=== PATIENT | male | born 1990 | race Caucasian/White ===

== ENCOUNTER 2019-02-28 21:02 | Observation (INO) ==
[2019-02-28] MEDS ORDERED: NS 1,000 ML IV ONE ×2 (21:15→23:20)
[2019-02-28] MEDS ORDERED: SODIUM CHLORIDE 0.9% INJ ONE (21:15)
[2019-02-28] MEDS ORDERED: PHENERGAN IV ONE (21:15)
[2019-02-28 21:36] LABS: BASO# 0.03 X1000 (0.0-0.2); BASO% 0.2 % (0.0-0.8); EOS# 0.07 X1000 (0.0-0.7); EOS% 0.5 % (0.0-10.0); HEMATOCRIT 46.2 % (42.0-52.0); HEMOGLOBIN 16.1 g/dL (14.0-18.0); IMM GRAN# 0.04 X1000 (0.0-0.04); IMM GRAN% 0.3 % (0.0-0.5); LYMPH# 1.67 X1000 (1.2-3.4); LYMPH% 11.3 % (20.5-51.1); MCH 29.5 PG (27-31); MCHC 34.8 g/dL (33-37); MCV 84.8 FL (81-99); MONO# 0.77 X1000 (0.11-0.59); MONO% 5.2 % (1.7-9.3); MPV 10.6 FL (7.4-10.4); NEUT# 12.23 X1000 (1.4-6.5); NEUT% 82.5 % (42.2-75.2); PLT 306 X1000 (130-400); RBC 5.45 XMIL (4.7-6.1); RDW 12.9 % (11.5-14.5); WBC 14.81 X1000 (4.8-10.8)
[2019-02-28 21:49] LABS: AGAP 17; ALBUMIN 4.3 g/dL (3.5-5.0); ALKALINE PHOSPHATASE 79 U/L (32-122); BUN 10 mg/dL (8-22); CALCIUM 8.9 mg/dL (8.8-10.2); CHLORIDE 102 mmol/L (98-107); COSMO 280; CREATININE 0.8 mg/dL (0.7-1.2); ESTIMATED GFR > 60; GLUCOSE 126 mg/dL (70-104); GOT 24 U/L (10-34); GPT 30 U/L (10-44); POTASSIUM 3.6 mmol/L (3.5-5.1); SODIUM 140 mmol/L (136-145); TCO2 21 mmol/L (25-35); TOTAL PROTEIN 8.1 g/dL (6.3-8.3)
[2019-02-28 22:03] LABS: I-STAT CREATININE 0.9 mg/dL (0.6-1.3)
--- NOTE | 2019-02-28 22:31 | Diag Imaging Result Doc PS360 ---
EXAM: CHEST-PORTABLE HISTORY: uri TECHNIQUE: Portable chest single view COMPARISON: None. FINDINGS: The lungs are well expanded. The heart is not enlarged. The vessels are not distended. There are no infiltrates. No effusion identified. IMPRESSION: No pneumonia. Electronically signed by Navid Mascorro 02/28/2019 10:28 PM
[2019-03-01] MEDS ORDERED: NS 1,000 ML IV ONE ×2 (01:49→06:25)
--- NOTE | 2019-03-01 02:09 | PROVIDER DOCUMENTATION ---
This chart was entered by Sarah Robb Scribe, acting as scribe for Dk Winters MD. HPI-General Adult - General Chief Complaint: Nausea/Vomiting Stated Complaint: difficulty breathing Time Seen by Provider: 02/28/19 21:08 Source: patient, EMS Allergies/Adverse Reactions: Patient Allergies Allergy/AdvReac Type Severity Reaction Status Date / Time No Known Allergies Allergy Verified 02/28/19 21:16 Home Medications: Home Medication List Medication Instructions Recorded Confirmed Last Taken Type Azithromycin [Zithromax Z-Teofilo] 1 tab PO DIRECTED 02/28/19 02/28/19 Unknown History - History of Present Illness -Gen Adult Nature of Presenting Problems: 28 y/o male presents to ED with N/V/D onset 2 hours prior to arrival. Pt reports he started taking azithromyocin yesterday for URI. EMS states he was diaphoretic en route to ED and they gave 4 of zofran. Pt is alert and oriented. Location of Pain/Injury: reports: none Pain Radiation: reports: no radiation Quality of Pain: reports: none Severity: reports: moderate Onset/Duration: reports: 1-3 hours ago Timing: reports: still present Context/Activities at Onset: reports: none Modifying Factors: improves with: nothing Associated Symptoms: reports: diarrhea, nausea, vomiting Similar Symptoms Previously?: No Recently seen or treated by another doctor?: Yes (urgent care yesterday) Review of Systems - Adult - REVIEW OF SYSTEMS - ADULT Constitutional: denies: chills, fever Eyes: reports: no symptoms reported Ears, Nose, Mouth & Throat: reports: no symptoms reported Cardiovascular: denies: chest pain, palpitations Respiratory: denies: cough, shortness of breath Gastrointestinal: reports: diarrhea, nausea, vomiting. denies: abdominal pain Genitourinary: reports: no symptoms reported Musculoskeletal: denies: back pain, joint pain Integumentary: reports: no symptoms reported Neurological: denies: dizziness/vertigo, seizure Psychiatric: reports: no symptoms reported Endocrine: reports: no symptoms reported Hematologic/Lymphatic: reports: no symptoms reported Allergic/Immunologic: reports: no symptoms reported All Other Systems: Reviewed and Negative Past History - Adult - PAST MEDICAL HISTORY-ADULT Review of Records: reports: Old Records Reviewed, Nursing Assessment Review, Medications Reviewed Major Childhood Illnesses: reports: denies history Cardiovascular: reports: denies history Respiratory: reports: denies history Gastrointestinal: reports: denies history Obstetrical/Gynecological: reports: denies history Genitourinary: reports: denies history Musculoskeletal: reports: denies history Neurological: reports: denies history Endocrine/Immune: reports: denies history Other Conditions: reports: denies history - PRIOR SURGERIES/PROCEDURES Surgical/Procedure History: reports: orthopedic (extremity) (R ankle; R arm) - IMMUNIZATION STATUS Childhood Immunizations: See Nurse Assessment Flu Vaccine: See Nurse Assessment - FAMILY HISTORY Family History: reviewed, not pertinent - SOCIAL HISTORY Smoking: non-smoker Substance Use: none/never Alcohol Use Frequency: never Living Situation: family Physical Exam-General - PHYSICAL EXAM-ADULT Initial Vital Signs Reviewed: Yes - CONSTITUTIONAL General Appearance: appears well, alert, no apparent distress - EYES Eyes: PERRL/EOMI, pink conjunctivae - HEAD, EARS, NOSE, MOUTH & THROAT HENMT: normocephalic/atraumatic, moist mucous membranes, normal ENT inspection - NECK Neck: non-tender, full range of motion - RESPIRATORY Respiratory: chest non-tender, lungs clear, normal breath sounds - CARDIOVASCULAR Cardiovascular: normal peripheral pulses, regular rate, rhythm - GASTROINTESTINAL (ABDOMEN) Abdominal Exam: normal bowel sounds, non tender, soft - MUSCULOSKELETAL Back Exam: normal inspection, no CVA tenderness Extremity: normal range of motion, non-tender, normal gait - SKIN Integumentary: warm/dry, pallor - NEUROLOGIC Neurologic: grossly normal - PSYCHIATRIC Psych/Mental Status: normal mood/affect, normal thought content, normal thought process Progress - PLAN OF CARE/RESULTS Progress/Plan/Lab Results: Vital Signs - 8 hr 02/28/19 21:04 Temperature 98.3 F Pulse Rate 107 H Respiratory Rate 22 Blood Pressure 120/75 O2 Sat by Pulse Oximetry 100 Orders Category Date Time Status CHEST-2 VIEWS [RAD] Stat Exams 02/28/19 21:10 Ordered CBC WITH DIFF [HEME] Stat Lab 02/28/19 21:08 Ordered COMPREHENSIVE METABOLIC PANEL [CHEM] Stat Lab 02/28/19 21:08 Uncollected Laboratory Tests 02/28/19 02/28/19 20:58 20:58 WBC 14.81 H RBC 5.45 Hgb 16.1 Hct 46.2 MCV 84.8 MCH 29.5 MCHC 34.8 RDW Std Deviation 12.9 Plt Count 306 MPV 10.6 H Immature Gran % (Auto) 0.3 Neut % (Auto) 82.5 H Lymph % (Auto) 11.3 L [place] % (Auto) 5.2 Eos % (Auto) 0.5 Baso % (Auto) 0.2 Immature Gran # (Auto) 0.04 Neut # (Auto) 12.23 H Lymph # (Auto) 1.67 [place] # (Auto) 0.77 H Eos # (Auto) 0.07 Baso # (Auto) 0.03 Sodium 140 Potassium 3.6 Chloride 102 Carbon Dioxide 21 L Anion Gap 17 BUN 10 Creatinine 0.8 Estimated GFR/1.73 m2 > 60 BUN/Creatinine Ratio 13 Glucose 126 H Calculated Osmolality 280 Calcium 8.9 Total Bilirubin 0.50 AST 24 ALT 30 Alkaline Phosphatase 79 Total Protein 8.1 Albumin 4.3 Globulin 4.0 Albumin/Globulin Ratio 1.0 Result Diagrams: 02/28/19 20:58 02/28/19 20:58 - XRAY 1 XRAY Study: Chest Impression: Normal (FINDINGS: The lungs are well expanded. The heart is not enlarged. The vessels are not distended. There are no infiltrates. No effusion identified. IMPRESSION: No pneumonia. Electronically signed by Navid Mascorro 02/28/2019 10:28 PM) 2 XRAY Study: Abdomen (Nonspecific bowel gas pattern. -Dr. Winters) Departure - Departure Date of Disposition Decision: 03/01/19 Time of Disposition Decision: 04:14 DIAGNOSIS: Acute dehydration, Gastroenteritis Disposition: ADMITTED INPATIENT 09 Certified Medical Emergency: Emergent Condition: Stable Referrals and Follow-Ups: None,PCP [Primary Care Provider] - - Critical Care Note This patient required my direct & personal management of CC.: No Attestation - Physician/ ANNIE Attestation Patient care was provided by Advanced Practice Provider:: No The physician spent face to face time with patient:: Yes Advanced Practice Provider documentation review:: Supervising physician onsite and consulted in the evaluation and care of this patient. The physician did have a face to face encounter with the patient. This chart was documented by the indicated scribe, (Sarah Robb Scribe) and accurately reflects the services I performed and decisions made by me, Dk Winters MD, as attested by the provider's signature.
[2019-03-01] MEDS ORDERED: PHENERGAN IV PRN (04:20)
[2019-03-01] MEDS ORDERED: SODIUM CHLORIDE 0.9% INJ ONE (04:20)
--- NOTE | 2019-03-01 05:26 | Diag Imaging Result Doc PS360 ---
EXAM: ABDOMEN FLAT/UPRIGHT HISTORY: vomiting TECHNIQUE: Flat and upright, two views COMPARISON: None. FINDINGS: No free air beneath the diaphragm. No organomegaly. No foreign body. No abnormal abdominal calcifications. The bowel loops are not dilated. Tiny air-fluid levels. IMPRESSION: Possible ileus. Electronically signed by Navid Mascorro 03/01/2019 5:23 AM
[2019-03-01 08:52] LABS: BASO# 0.04 X1000 (0.0-0.2); BASO% 0.4 % (0.0-0.8); EOS# 0.03 X1000 (0.0-0.7); EOS% 0.3 % (0.0-10.0); HEMATOCRIT 42.1 % (42.0-52.0); HEMOGLOBIN 14.1 g/dL (14.0-18.0); IMM GRAN# 0.03 X1000 (0.0-0.04); IMM GRAN% 0.3 % (0.0-0.5); LYMPH# 0.72 X1000 (1.2-3.4); LYMPH% 7.2 % (20.5-51.1); MCH 29.4 PG (27-31); MCHC 33.5 g/dL (33-37); MCV 87.7 FL (81-99); MONO# 0.68 X1000 (0.11-0.59); MONO% 6.8 % (1.7-9.3); MPV 9.8 FL (7.4-10.4); NEUT# 8.45 X1000 (1.4-6.5); PLT 230 X1000 (130-400); RDW 13.2 % (11.5-14.5); WBC 9.95 X1000 (4.8-10.8)
[2019-03-01 09:12] LABS: AGAP 10; BUN 9 mg/dL (8-22); CALCIUM 7.9 mg/dL (8.8-10.2); CHLORIDE 106 mmol/L (98-107); COSMO 280; CREATININE 0.7 mg/dL (0.7-1.2); ESTIMATED GFR > 60; GLUCOSE 99 mg/dL (70-104); POTASSIUM 4.2 mmol/L (3.5-5.1); SODIUM 141 mmol/L (136-145); TCO2 25 mmol/L (25-35)
[2019-03-01] MEDS: TYLENOL PO PRN ×2 (09:26→18:15)
[2019-03-01 11:58] LABS: URINE SOURCE CLEAN CATCH
[2019-03-01 12:00] LABS: BILIRUBIN URINE NEGATIVE (NEGATIVE); CLARITY CLEAR (CLEAR); COLOR YELLOW; GLUCOSE URINE NEGATIVE (NEGATIVE); KETONE URINE NEGATIVE (NEGATIVE); URINE BACTERIA NEGATIVE /HFP; URINE CAST NONE SEEN /LPF; URINE CRYSTAL NONE SEEN /HPF; URINE EPITHELIAL CELLS <10 /HPF (<10); URINE RBC <10 /HPF (<10); URINE WBC <10 /HPF (<10); URINE YEAST PRESENT /HPF
[2019-03-01 12:01] LABS: BLOOD URINE NEGATIVE (NEGATIVE); LEUKOCYTES URINE NEGATIVE (NEGATIVE); NITRITE URINE NEGATIVE (NEGATIVE); PROTEIN URINE NEGATIVE (NEGATIVE); UROBILINOGEN URINE NORMAL
--- NOTE | 2019-03-01 13:44 | Diag Imaging Result Doc PS360 ---
EXAM: CT ABD/PELVIS W/IV CONT ONLY HISTORY: abd pain right lower quadrant; n/v; fever TECHNIQUE: CT abdomen and pelvis with intravenous contrast COMPARISON: None. FINDINGS: No calcified gallstones or adjacent inflammation. Normal liver, spleen, pancreas, and adrenal glands. Small focal area of abnormal enhancement medially and inferiorly in the left kidney with questionable mild abnormal enhancement in the medial right kidney. There are tiny calyceal stones. No hydronephrosis. Normal aorta. Normal appendix. No abscess. No bowel obstruction. No ascites. Urinary bladder is only mildly distended. Normal prostate. IMPRESSION: Tiny calyceal stones with questionable mild pylonephritis. This exam was performed using automated exposure control, adjustment of mA or kV according to patient size, and/or use of iterative reconstruction technique. Electronically signed by Navid Mascorro 03/01/2019 1:41 PM
[2019-03-01] MEDS: ZOSYN 3.375 GM in NS 50 ML IV SCH ×2 (14:46→20:10)
--- NOTE | 2019-03-01 14:54 | HISTORY AND PHYSICAL ---
PRIMARY CARE PROVIDER: No one. CHIEF COMPLAINT: Abdominal pain, diarrhea with vomiting, worse with red meat but started worsening over the last couple of days. HISTORY OF PRESENT ILLNESS: Mr. Dk Campos is a 28-year-old male who states that over the last 6 to 8 months he has been having to stay away from red meat because when he eats it it causes severe abdominal pain with diarrhea and vomiting. Apparently, he is scheduled to follow up with a doctor as an outpatient to evaluate for food allergies. He states on Thursday he went to a physician who prescribed him with a steroid shot and azithromycin for an upper respiratory infection and laryngitis. He still has a dry cough. He took 2 doses of azithromycin on Thursday and 1 on Thursday with the last one being around 1:30. Then, a couple of hours after that, he started having severe nausea, vomiting and diarrhea with shivers and tremors. He has had the dry cough for at least 4 days. He came here because of those symptoms. He is febrile while he has been here. White count was elevated on admission and has gone back to normal. He still continues to have the diarrhea which is essentially just water. So, we will evaluate for any stool infection; and we will get a CT scan. The CT scan showed pyelonephritis which we will treat with Zosyn and watch him 1 more night. PAST MEDICAL HISTORY: Six to eight months of red meat food allergies. PAST SURGICAL HISTORY: 1. Right ankle bone graft due to fluid-filled cyst. 2. Right arm fracture repair. SOCIAL HISTORY: Denies tobacco, alcohol or illicit drug use. FAMILY HISTORY: Mother's side of the family grandfather had pancreatic cancer. Father's side of the family an unknown cancer and hyperlipidemia. ALLERGIES: No known drug allergies. HOME MEDICATIONS: He was on azithromycin. REVIEW OF SYSTEMS: A 14-point review of systems are complete, and all were negative except for those mentioned in the above HPI. PHYSICAL EXAMINATION: VITAL SIGNS: Temperature 99.9; heart rate 105; respiratory rate 18; blood pressure 108/56; O2 saturation 98% on room air. GENERAL: Mr. Dk Campos is a 28-year-old male. He is able to answer questions appropriately. He is in no acute distress. HEENT: Atraumatic and normocephalic. Pupils are equal, round and reactive to light. Extraocular movements intact. Mucous membranes are moist. NEUROLOGICAL: Alert and oriented x 3. Follows commands. Sensory is intact. NECK: Trachea midline. CARDIOVASCULAR: S1 and S2. Tachycardic rate and rhythm. No rubs, gallops or murmurs. No lower extremity edema. Plus 2 dorsalis and radial pulses. Negative JVD or carotid bruits. PULMONARY: Clear to auscultation. Bilateral breath sounds. No accessory muscle use or work of breathing noted. GASTROINTESTINAL: Soft, tender in the right lower quadrant only. Positive bowel sounds x 4. EXTREMITIES: Moves all extremities equally with full range of motion. SKIN: Warm, dry and intact. LABORATORY DATA: White blood cells 9000, hemoglobin 14, hematocrit 42, platelet count 230,000. ESR 12. Sodium 141, potassium 4.2, BUN 9, creatinine 0.7, glucose 99, calcium 7.9. Urinalysis negative. IMAGING: Chest x-ray no pneumonia. Abdominal x-ray possible ileus. He did have an abdominal and pelvic CT that showed tiny calyceal stones with questionable mild pyelonephritis. No bowel obstruction. ASSESSMENT AND PLAN: 1. Abdominal pain with diarrhea. We will send stool studies. CT does not show any obstruction. X-ray shows possible ileus, but he is not throwing up. He has watery diarrhea with abdominal discomfort and pain. He is getting IV fluids. 2. Nausea. Antiemetics. 3. Leukocytosis with fever and CT that shows pyelonephritis. We will start him on Zosyn. He is still getting IV fluids. 4. Possible red meat allergies for 6 to 8 months. Apparently, he has been having spells of severe abdominal pain, diarrhea and vomiting when he has intake of red meat. He is suppose to follow up and have allergy testing as an outpatient performed. 5. Dry cough with recent diagnosis of upper respiratory infection and laryngitis. The chest x-ray did not show anything acute. Currently, he is going to be on Zosyn for the pyelonephritis. 6. DVT prophylaxis. SCDs. Dictated by KELTON Figueroa for Bart Arias MD Addendum: Patient seen and examined by myself. Agree with KELTON note. It reflects my assessment and plan. Patient is being admitted to hospital for abdominal pain and diarrhea. Will start IV fluids and optimize pain management. We have ordered CT of abdomen which showed pyelonephritis so will continue with Zosyn. Will check CBC daily. cc: KELTON Figueroa MD MTDD
[2019-03-02] MEDS: ZOSYN 3.375 GM in NS 50 ML IV SCH ×2 (02:11→09:28)
[2019-03-02 06:39] LABS: BASO# 0.02 X1000 (0.0-0.2); BASO% 0.4 % (0.0-0.8); EOS# 0.13 X1000 (0.0-0.7); EOS% 2.4 % (0.0-10.0); HEMATOCRIT 41.3 % (42.0-52.0); IMM GRAN# 0.01 X1000 (0.0-0.04); IMM GRAN% 0.2 % (0.0-0.5); LYMPH# 1.47 X1000 (1.2-3.4); MCH 29.6 PG (27-31); MCHC 33.9 g/dL (33-37); MCV 87.3 FL (81-99); MONO# 0.82 X1000 (0.11-0.59); MONO% 15.1 % (1.7-9.3); MPV 10.1 FL (7.4-10.4); NEUT# 2.99 X1000 (1.4-6.5); NEUT% 54.9 % (42.2-75.2); PLT 204 X1000 (130-400); RBC 4.73 XMIL (4.7-6.1); RDW 13.1 % (11.5-14.5); WBC 5.44 X1000 (4.8-10.8)
[2019-03-02 06:59] LABS: AGAP 8; BUN 7 mg/dL (8-22); CALCIUM 8.5 mg/dL (8.8-10.2); CHLORIDE 106 mmol/L (98-107); COSMO 282; CREATININE 0.8 mg/dL (0.7-1.2); ESTIMATED GFR > 60; GLUCOSE 85 mg/dL (70-104); SODIUM 143 mmol/L (136-145); TCO2 29 mmol/L (25-35)
[2019-03-02 08:32] VITALS: BP 101/73
--- NOTE | 2019-03-02 19:50 | DISCHARGE SUMMARY ---
ADMISSION DATE: 03/01/2019 DISCHARGE DATE: 03/02/2019 ADMISSION DIAGNOSES: 1. Abdominal pain with diarrhea. 2. Nausea. 3. Leukocytosis with fever. Had a CT that showed pyelonephritis. 4. Possible red meat allergies for 6-8 months 5. Dry cough with recent diagnosis of upper respiratory infection and laryngitis. DISCHARGE DIAGNOSES: 1. Abdominal pain and diarrhea, all of which is much improved. Stool studies negative for Clostridium difficile. 2. Nausea, also improved. 3. Leukocytosis with fever, resolved. 4. Pyelonephritis. This is improved with Zosyn. 5. Red meat allergies for 6-8 months. Will follow up as an outpatient with whoever it is he has scheduled. 6. Dry cough with recent diagnosis of upper respiratory infection and laryngitis, which is all improved. HOSPITAL COURSE: Mr. Dk Campos is a 28-year-old male who presented here on 03/01/2019 with a complaint of abdominal pain, primarily generalized, but more located in the right lower quadrant. He stated that he went on Thursday to a physician who prescribed him a steroid shot and azithromycin. He took 2 days' worth and then had sudden development of severe nausea, vomiting and diarrhea with shivers and tremors, and apparently had a dry cough that had lasted for 4 days as well. He was febrile when he presented to [facility]. Stool studies were obtained, which were negative for C difficile. A CT was performed which showed pyelonephritis. He was started on Zosyn IV. After receiving IV Zosyn and stools slow down as well, he will be discharged with Levaquin. DISCHARGE VITAL SIGNS: Temperature 98.3, heart rate 84, respiratory rate 18, blood pressure 101/73, O2 saturation 100% on room air. DISCHARGE LABORATORY DATA: White blood cells 5000, hemoglobin 14, hematocrit 41, platelet count 204. Sodium 143, potassium 4.0, BUN 7, creatinine 0.8, glucose 85, calcium 8.5. CRP was 30.24. Sed rate was normal at 12. PERTINENT IMAGING: Chest x-ray: No pneumonia. Abdominal x-ray: Possible ileus. Abdominopelvic CT: Tiny caliceal stones with questionable mild pyelonephritis. No bowel obstruction. No abscess. Normal appendix. DISCHARGE MEDICATIONS: Levaquin 750 mg p.o. daily for 10 days. DISCHARGE DIET: Regular. DISCHARGE ACTIVITY: As tolerated. DISCHARGE FOLLOWUP: None. DISCHARGE INSTRUCTIONS: If your condition changes, contact your physician and/or return to the emergency department. Changes may include but are not limited to shortness of breath, increased fatigue, excessive bleeding, unexplained weight loss or gain, unimaginable pain, or signs or symptoms of infection. DISCHARGE DISPOSITION: Home. Dictated by KELTON Figueroa for Bart Arias MD Addendum: Patient seen and examined by myself. Agree with KELTON note. It reflects my assessment and plan. Patient is being discharged from hospital in stable condition and will be seen by primary care doctor in a week. cc: KELTON Figueroa MD [facility]
== END 2019-03-02 14:55 | disposition home or self-care (01) ==
LOC: P.ED 21:02 → P.MEDSURG 21:02
PROVIDERS: ATTEND Internal Medicine
CPT/HCPCS: 71010; 71045; 74019; 74020; 74177; 80048; 80053; 81001; 82565; 84520; 85025; 85651; 86140; 87040; 87324; 87449; 94761; 96361; 96374; 99285; A9270; J2543; J2550; J7030; Q9967